=== PATIENT | female | born 2005 | race Caucasian/White ===

== ENCOUNTER 2025-04-18 05:52 | Emergency (ER) | payer MEDICAID ==
[~2025-04-18] VITALS: Ht 167.6 cm; Wt 54.5 kg
[2025-04-18 06:03] VITALS: BP 132/93; TEMP 97.8
--- NOTE | 2025-04-18 06:43 | Physician Documentation ---
History of Present Illness ~ Chief Complaint: Laceration Stated Complaint: LEFT HAND LAC Time Seen by MD: 06:42 OK to notify your PCP?: Yes Source: patient, RN/MD, RN notes reviewed, old records Mode of Arrival: POV Exam Limitations: no limitations HPI A 19Y/F with history of alcohol use disorder came to ED for laceration on dorsum of her left hand. Patient drinks alcohol every day and hit her hand against the wall and had a laceration of about 3x 1 cm on dorsum of hand, with pain of 6/10 in intensity. Patient does not want any treatment/social service consult for alcohol use disorder. Patient denies any numbness, tingling in the hand. Patient denies any chest pain,abdominal pain, dizziness, syncopal attacks. Medication Reconciliation Allergies: Coded Allergies: No Known Allergies (Unverified , 09/18/16) Scheduled Cephalexin*Monohydrate* (Keflex*), 1 CAP PO BID Past Medical History Past Medical History: No Pertinent History Other Past Medical History: Alcohol use disorder Past Surgical History: no surgical history Drug Use: none Lives with: Family Lives In: Home Occupation: child Review of Systems All Other Systems at this time: Reviewed and Negative Physical Exam Vital Signs: RN Vital Signs have been reviewed: Yes, Temperature: 97.8, Source: Oral, Heart Rate: 88, Respiratory Rate: 18, BP: 132/93, Pulse Oximetry: 96, Weight: 54.500 Oxygen Flow Rate: 0 Physical Exam Awake , alert and oriented to time,place, person, not in distress, alcohol in breath HEENT: Atraumatic, normocephalic, PERRLA, EOMI, anicteric sclera ; pink conjunctiva, moist mucos membranes Neck: Trachea midline. Supple, normal range of motion, no JVD, no lymphadenopathy Chest and Respiratory: Equal breath sounds bilaterally, no tachypnea, wheezing, ronchi,rubs .Chest wall is symmetric and without deformity. Cardiac: S1, S2 heard,Regular rate and rhythm, no murmurs ,no gallops, no rubs. Abdomen: Soft, No tenderness, No guarding or rigidity, Menendez's sign negative. normal bowel sounds x4 quadrant, no hepatosplenomegaly MSK: Range of motion of all extremities are normal. There is no joint pain or joint swelling or joint erythema. There is no muscle pain or tenderness or swelling. Extremities: A 3 x 1 cm irregular laceration on dorsum of left hand at metacarpo-phalanx joint of 4 th finger with no active bleeding/ swelling or limitation of movement. warm, well-perfused, No cyanosis, clubbing, 2+ pulses felt. Neurological: Mental status exam: alert and consciousness, orientation, memory, speech - Cranial nerve test: Cranial nerves II-XII intact. - Motor system: Normal Nutrition, normal tone, Power 5/5, no involuntary mov ements - Sensory system: Intact - Reflex testing: Biceps, triceps and knee reflexes 2+ - Cerebellar: Normal Skin: Warm and dry Psychiatry: Affect and mood are normal Progress Results/Orders Reviewed/noted all lab results: Yes Results/Orders Completed Orders - BHARATH CORRAL MD Cephalexin Capsule (Keflex Capsule) (04/18/25 07:45) Medications Received in ER Medications (Trade) Dose Ordered Sig/Francisco Route PRN Reason Start Time Stop Time Status Last Admin Dose Admin (Toradol injection) 15 mg ONCE ONCE IM 04/18/25 06:50 04/18/25 06:54 DC 04/18/25 07:15 15 MG Vital Signs 04/18/25 06:03 Temp 97.8 Pulse 88 Resp 18 B/P (MAP) 132/93 Pulse Ox 96 O2 Flow Rate 0 Medical Decision Making Additional information obtaine: other Findings A 19Y/F with history of alcohol use disorder came to ED for laceration on dorsum of her left hand. Patient drinks alcohol every day, Intoxicated, and punched her hand against the wall and had a laceration of about 3x 1 cm on dorsum of hand, with pain of 6/10 in intensity. Patient received Toradol 15mg IM for pain. She doesn't want any procedure(wound closure with suture ) or tetanus injection for the wound and social service consult for alcohol use use disorder. Patient is alert, conscious, coherent, oriented to time place and person. Risks and complications are explained to the patient. Patient was discharged with oral Keflex 250 mg twice daily for 5 days. Differential Dx:Considerations: Include: Abrasion, Contusion, Laceration, Hematoma Departure Disposition: 01 HOME / SELF CARE / HOMELESS Impression: Primary Impression: Laceration of hand Qualified Codes: S61.412A - Laceration without foreign body of left hand, initial encounter Condition: Stable Additional Instructions: Apply antibiotic cream Take medications as prescribed Referrals: NO PRIMARY CARE PROVIDER (PCP) Prescriptions Cephalexin*Monohydrate* (Keflex*) 250 Mg Capsule 1 CAP PO BID for 5 Days, #10 CAP Prov: BHARATH CORRAL MD 04/18/25 Signature Scribe Signature: No scribe Attestation: Resident attestation The above note has been reviewed and supervised by a senior resident PGY2/PGY3 Patient was seen, examined and discussed with the attending physician Karen Mazariegos MD Internal Medicine Resident, PGY 1 The note accurately reflects work and decisions made by me.Bharath Corral MD 04/18/25 06:43 BHARATH CORRAL MD Apr 18, 2025 06:43 STEPHANIE MAZARIEGOS, RES Apr 18, 2025 07:03
[2025-04-18] MEDS: bacitracin 15gm ointment TP ONE (06:50)
[2025-04-18] MEDS: ketorolac trometh 15mg/ml vial 15 MG/ML ML IM ONE (07:15)
[2025-04-18] MEDS ORDERED: CEPH250T PO (07:41)
[2025-04-18 08:06] VITALS: PULSE 89; RESP 15; O2SAT 99
== END 2025-04-18 08:08 | disposition home or self-care (01) ==
LOC: ER 05:53
DX: S61.412A Laceration without foreign body of left hand, initial encounter (principal); X58.XXXA Exposure to other specified factors, initial encounter; Y93.89 Activity, other specified; Y92.89 Other specified places as the place of occurrence of the external cause; Y99.8 Other external cause status
CPT/HCPCS: 96372; 99283; J1885; A6258